=== PATIENT | male | born 2000 | race Hispanic/Latino ===

== ENCOUNTER 2021-12-14 14:32 | Emergency (ER) | payer MEDICAID, OTHER ==
[~2021-12-14] VITALS: Ht 185.4 cm; Wt 83.9 kg
[2021-12-14] MEDS ORDERED: KETOROLAC 30MG VIAL (30MG/ML) IVP ONE (15:00)
[2021-12-14 15:10] VITALS: BP 126/69
[2021-12-14] MEDS ORDERED: DIAZEPAM 5 MG/ML 2 ML SYG IVP SCH (15:30)
[2021-12-14] MEDS ORDERED: MORPHINE 4 MG SYG IVP SCH (15:30)
[2021-12-14] MEDS ORDERED: ONDANSETRON 4MG INJ IVP SCH (15:30)
[2021-12-14] MEDS ORDERED: IBUP-2070 PO (18:43)
== END 2021-12-14 19:18 | disposition home or self-care (01) ==
LOC: EDH 14:32
DX: S43.004A Unspecified dislocation of right shoulder joint, initial encounter (principal); Y08.89XA Assault by other specified means, initial encounter; Y93.89 Activity, other specified; Y92.89 Other specified places as the place of occurrence of the external cause; Y99.8 Other external cause status
CPT/HCPCS: 23650; 73020; 73030; 96374; 96375; 99284; J1885; J2270; J2405; J3360